=== PATIENT | male | born 1980 | race Caucasian/White ===

== ENCOUNTER 2018-10-19 15:39 | Emergency (ER) | payer SELFPAY ==
[2018-10-19] VITALS (38 sets, daily range): BP systolic 121–149; BP diastolic 67–107; PULSE 72–104; RESP 12–28; TEMP 37.1; O2SAT 94–100
--- NOTE | 2018-10-19 15:57 | DI.RAD_ITS ---
SYMPTOM/DIAGNOSIS: PALPITATIONS, SOB FRONTAL AND LATERAL CHEST: No priors. Heart size and pulmonary vasculature are within normal limits. Lungs are clear. They do appear to be hyperinflated with flattened diaphragms. This may represent underlying COPD. No effusions or pneumothoraces are identified. The bones are intact. IMPRESSION: Increased lung volumes which may be due to good inspiration versus COPD.
--- NOTE | 2018-10-19 15:59 | W.ED.GENAD ---
Discharge Plan Disposition Patient Disposition: HOME Condition: Stable Discharge Details Chief Complaint: Anxiety Clinical Impression: Panic attack, Heart palpitations Primary Care Provider: Rubén Bermudez ED Provider: Sherwin Osborne Home Meds and New Rx's Prescriptions: No Action No Known Home Meds RF: 0 Discharge Instructions Instructions: Palpitations (ED), Panic Attack (ED) Additional Instructions: Return immediately to the emergency department for any new or significant worsening of symptoms otherwise stay well-hydrated and follow-up with your primary care provider if symptoms persist Referrals: Rubén Bermudez MD [Primary Care Provider] - (As needed for reassessment) Discharge Data Discharge Date/Time-TO BE ENTERED AT DEPARTURE: 10/19/18 20:28 Medical Decision Making <Blake Oglesby NP - Last Filed: 10/21/18 09:15> History and exam consistent with panic attack. He is clinically dry and with history of collectomy we will evaluate electrolyte stability and initiate intravenous fluids. Will evaluate with chest x-ray and the ECG is benign with no acute ST abnormality and sinus tahycardic rhythm. Explained he would be here a few hours and I would turn care over to colleague for disposition. He is agreeable with POC. ECG Data Attestation: I personally reviewed and interpreted this ECG (s) as follows: Interpretation: Reviewed with Dr. Ortiz. No acute ST abnormality. Regular rhythm with abnormal rate of 105. <Sherwin Osborne NP - Last Filed: 10/19/18 20:38> Care of patient taken over by Blake Oglesby NP. Patient pending lab results for chief complaint of palpitations and what appears to be a panic attack. There was slight question of possible Trousseau sign by EMS but none noted in emergency department. Review of labs shows negative troponin, slight hypomagnesia, slightly low calcium but when adjusted for low albumin patient is within normal limits. Patient reassessed and again had no signs of low calcium with physical exam testing but continued to complain of palpitations and chest discomfort. Gave patient second liter of IV fluids and small amount of Ativan. Reassessed patient after liter of fluids patient is no longer tachycardic but continues to still complain of chest discomfort and intermittent palpitations which are not being observed on bedside monitor. Plan to check 3-hour troponin and repeat EKG along with give GI cocktail and Pepcid for possible heartburn/GERD symptoms related to heavy alcohol intake over the weekend. Review of 3-hour troponin and EKG shows no more tachycardia but otherwise no other EKG changes, -3-hour troponin. Patient reassessed and states resolution of symptoms and that he is ready to go home. Patient symptoms seem consistent with anxiety attack and possible secondary palpitations. Patient encouraged to return for any new or worsening symptoms otherwise to follow-up with primary care as needed. After discussion of diagnosis and plan of care patient has no further needs, questions, or concerns and states clear understanding to return to the emergency department for any worsening symptoms. <Zhao Ortiz MD - Last Filed: 10/19/18 20:01> ECG #1 at 1545 reviewed and interpreted by me: Sinus tachycardia 105 bpm, normal axis, short SC with SC interval of 116, RSR pattern, no stemi. Nondiagnostic. My interpretation was provided to nurse practitioner Mendel. ECG #2 reviewed and interpreted by me: Normal sinus rhythm 89 bpm, normal axis, RSR prime pattern noted, no STEMI. Nondiagnostic. My interpretation was provided to nurse practitioner [place]. I was physically present in the emergency department and available for consultation during some of the ED course. I was asked to interpret EKG. I was otherwise not involved in the care of this patient. HPI <Blake Oglesby NP - Last Filed: 10/21/18 09:15> General Mode of arrival: EMS. Date/Time Provider Initiated Documentation: 10/19/18 15:56. Limitations to Documentation: no limitations. Information obtained by: patient. History of Present Illness 38 year old M presents to the emergency department with the chief complaint of palpitations with SOB, HPI Narrative: 38 y/o male here via [facility] with concerns of palpitations, numbness and tingling to extremities, with SOB. Pt medical history significant with ulcerative colitis with extraction of his colon. No cardiac history or panic disorder. He enjoyed a few [place] parties and adult beverages per his usual. [place] fine when he woke this am. Around 1400 or two hrs [employer] he felt sudden onset of palpitations, SOB, and numbness and tingling to his extremities. Denies any cp. He did try to relax and calm down to see if that helped but symptoms were persistent so he call EMS. He did admit to smoking one joint today but otherwise no use of other recreational drugs. EMS reported positive Trousseaus sign with B/P cuff and hyperflexion of wrist and hand. Pt reports feeling better on arrival and is apologetic for coming in for what could be panic attack. Related Data Home Medications Medication Instructions Recorded Confirmed Unknown [No Known Home Meds] 10/19/18 10/19/18 Allergies Allergy/AdvReac Type Severity Reaction Status Date / Time No Known Allergies Allergy Unverified 10/19/18 16:02 Review of Systems <Blake Oglesby NP - Last Filed: 10/21/18 09:15> Eyes Reports system reviewed and no additional complaints, except as docu ENT Reports system reviewed and no additional complaints, except as docu Cardiovascular Reports palpitations and Reports dyspnea Respiratory Reports dyspnea Gastrointestinal Reports loose stools (chronic from colectomy) Genitourinary Reports system reviewed and no additional complaints, except as docu Musculoskeletal Reports back pain (chronic) Integumentary/Breasts Reports system reviewed and no additional complaints, except as docu Neurologic Reports paresthesias Psychiatric Reports anxiety Endocrine Reports palpitations Hematologic/Lymphatic Reports system reviewed and no additional complaints, except as docu Exam <Blake Oglesby NP - Last Filed: 10/21/18 09:15> Const General: cooperative, healthy appearing, comfortable and anxious Nutritional Appearance: thin Orientation: alert, awake and oriented x3 HENMT Head: atraumatic Ears: hearing grossly normal bilaterally and external ears normal General nose exam: external nose normal and nares normal Face and sinus: normal facial exam, sinuses nontender, face symmetric, no tenderness and dry mucous membranes Mouth: lip normal, tongue normal, moist mucous membranes abnormal (parched) and no trismus Eyes General: appearance normal, both eyes and all related structures Sclera: sclerae normal EOM: EOM intact bilaterally Neck Neck: normal visual inspection, full ROM and no lymphadenopathy Chest Chest: normal inspection of the chest and normal palpation of entire chest wall Resp Effort & Inspection: normal respiratory effort and able to speak in complete sentences Auscultation: clear to auscultation bilaterally Cardio Rate: tachycardic Rhythm: regular rhythm Heart Sounds: no murmurs GI Palpation: soft and nontender Back/Spine/Pelvis Cervical Spine: cervical ROM normal Thoracic/Lumbar Spine: thoracic and lumbar spine normal to inspection, thoraco-lumbar ROM normal and thoraco-lumbar ROM limited Skin General skin exam: no rashes or lesions noted Neuro General: alert, awake and oriented x3 Cranial Nerves: PERRL and no nystagmus Cognition: normal cognition Speech: speech normal Motor: strength 5/5 throughout, no fasciculations and no pronator drift noted Sensory Exam: no sensory deficits noted Coordination: [id number] test normal and [id number] test normal Extrem General: full ROM and normal capillary refill Psych Appearance: grossly normal Mental Status: mental status grossly normal Speech and Movement: speech and movement normal Mood: anxious mood Affect: normal affect Attitude: cooperative Thought Process: normal Thought Content: normal Insight: insight good Course <Blake Oglesby NP - Last Filed: 10/21/18 09:15> Vital Signs Respiratory Rate 19 10/19/18 15:36 Pulse 100 H 10/19/18 15:38 Pulse 101 H 10/19/18 15:40 Respiratory Rate 17 10/19/18 15:40 Blood Pressure 149/86 H 10/19/18 15:38 Blood Pressure Mean 95 10/19/18 15:38 Pulse Oximetry 100 10/19/18 15:40 Sign Out <Blake Oglesby NP - Last Filed: 10/21/18 09:15> Sign Out Data: Sign Out Comment: Discussed with Sherwin Johnson ENP. He agrees to take over care and dispo patient. Last updated by Blake Oglesby NP at 10/19/18 16:21
[2018-10-19] MEDS: Normal Saline 1,000 ML 1000 ML IV ×2 (16:00→17:25)
[2018-10-19 16:12] LABS: Abs Immature Grans 0.03 k/cumm (0.0-0.09); Absolute Basophil Count 0.03 k/cumm (0.0-0.2); Absolute Lymphocyte Count 1.55 k/cumm (1.2-3.4); Absolute Monocyte Count 0.85 k/cumm (0.11-0.7); Basophils % 0.2; Eosinophils % 0.4; HGB 13.4 g/dL (13.5-17.5); Immature Grans % 0.2; Lymphocytes % 11.6; Mean Corp. HGB Concentration 34.4 g/dL (32.0-36.0); Mean Corpuscular Hemoglobin 30.6 pg (27.0-33.0); Mean Platelet Volume 8.8 fL (8.0-11.0); Monocytes % 6.4; Neutrophils % 81.2; Platelet Count 292 x1000/uL (130-400); RBC 4.38 m/cumm (4.50-6.00); RBC Distribution Width 12.6 % (11.8-14.1); White Blood Cell Count 13.35 k/cumm (4.4-10.8)
--- NOTE | 2018-10-19 16:20 | ED.GENADUL_ITS ---
Discharge Plan Disposition Patient Disposition: HOME Condition: Stable Discharge Details Chief Complaint: Anxiety Clinical Impression: Panic attack, Heart palpitations Primary Care Provider: Rubén Bermudez ED Provider: Sherwin Osborne Home Meds and New Rx's Prescriptions: No Action No Known Home Meds RF: 0 Discharge Instructions Instructions: Palpitations (ED), Panic Attack (ED) Additional Instructions: Return immediately to the emergency department for any new or significant worsening of symptoms otherwise stay well-hydrated and follow-up with your primary care provider if symptoms persist Referrals: Rubén Bermudez MD [Primary Care Provider] - (As needed for reassessment) Discharge Data Discharge Date/Time-TO BE ENTERED AT DEPARTURE: 10/19/18 20:28 Medical Decision Making <Blake Oglesby NP - Last Filed: 10/21/18 09:15> History and exam consistent with panic attack. He is clinically dry and with history of collectomy we will evaluate electrolyte stability and initiate intravenous fluids. Will evaluate with chest x-ray and the ECG is benign with no acute ST abnormality and sinus tahycardic rhythm. Explained he would be here a few hours and I would turn care over to colleague for disposition. He is agreeable with POC. ECG Data Attestation: I personally reviewed and interpreted this ECG (s) as follows: Interpretation: Reviewed with Dr. Ortiz. No acute ST abnormality. Regular rhythm with abnormal rate of 105. <Sherwin Osborne NP - Last Filed: 10/19/18 20:38> Care of patient taken over by Blake Oglesby NP. Patient pending lab results for chief complaint of palpitations and what appears to be a panic attack. There was slight question of possible Trousseau sign by EMS but none noted in emergency department. Review of labs shows negative troponin, slight hypomagnesia, slightly low calcium but when adjusted for low albumin patient is within normal limits. Patient reassessed and again had no signs of low calcium with physical exam testing but continued to complain of palpitations and chest discomfort. Gave patient second liter of IV fluids and small amount of Ativan. Reassessed patient after liter of fluids patient is no longer tachycardic but continues to still complain of chest discomfort and intermittent palpitations which are not being observed on bedside monitor. Plan to check 3-hour troponin and repeat EKG along with give GI cocktail and Pepcid for possible heartburn/GERD symptoms related to heavy alcohol intake over the weekend. Review of 3-hour troponin and EKG shows no more tachycardia but otherwise no other EKG changes, -3-hour troponin. Patient reassessed and states resolution of symptoms and that he is ready to go home. Patient symptoms seem consistent with anxiety attack and possible secondary palpitations. Patient encouraged to return for any new or worsening symptoms otherwise to follow-up with primary care as needed. After discussion of diagnosis and plan of care patient has no further needs, questions, or concerns and states clear understanding to return to the emergency department for any worsening symptoms. <Zhao Ortiz MD - Last Filed: 10/19/18 20:01> ECG #1 at 1545 reviewed and interpreted by me: Sinus tachycardia 105 bpm, normal axis, short SC with SC interval of 116, RSR pattern, no stemi. Nondiagnostic. My interpretation was provided to nurse practitioner Mendel. ECG #2 reviewed and interpreted by me: Normal sinus rhythm 89 bpm, normal axis, RSR prime pattern noted, no STEMI. Nondiagnostic. My interpretation was provided to nurse practitioner [place]. I was physically present in the emergency department and available for consultation during some of the ED course. I was asked to interpret EKG. I was otherwise not involved in the care of this patient. HPI <Blake Oglesby NP - Last Filed: 10/21/18 09:15> General Mode of arrival: EMS . Date/Time Provider Initiated Documentation: 10/19/18 15:56 . Limitations to Documentation: no limitations . Information obtained by: patient . History of Present Illness 38 year old M presents to the emergency department with the chief complaint of palpitations with SOB, HPI Narrative: 38 y/o male here via [facility] with concerns of palpitations, numbness and tingling to extremities, with SOB. Pt medical history significant with ulcerative colitis with extraction of his colon. No cardiac history or panic disorder. He enjoyed a few [place] parties and adult beverages per his usual. [place] fine when he woke this am. Around 1400 or two hrs [employer] he felt sudden onset of palpitations, SOB, and numbness and tingling to his extremities. Denies any cp. He did try to relax and calm down to see if that helped but symptoms were persistent so he call EMS. He did admit to smoking one joint today but otherwise no use of other recreational drugs. EMS reported positive Trousseaus sign with B/P cuff and hyperflexion of wrist and hand. Pt reports feeling better on arrival and is apologetic for coming in for what could be panic attack. Related Data Home Medications Medication Instructions Recorded Confirmed Unknown [No Known Home Meds] 10/19/18 10/19/18 Allergies Allergy/AdvReac Type Severity Reaction Status Date / Time No Known Allergies Allergy Unverified 10/19/18 16:02 Review of Systems <Blake Oglesby NP - Last Filed: 10/21/18 09:15> Eyes Reports system reviewed and no additional complaints, except as docu ENT Reports system reviewed and no additional complaints, except as docu Cardiovascular Reports palpitations and Reports dyspnea Respiratory Reports dyspnea Gastrointestinal Reports loose stools (chronic from colectomy) Genitourinary Reports system reviewed and no additional complaints, except as docu Musculoskeletal Reports back pain (chronic) Integumentary/Breasts Reports system reviewed and no additional complaints, except as docu Neurologic Reports paresthesias Psychiatric Reports anxiety Endocrine Reports palpitations Hematologic/Lymphatic Reports system reviewed and no additional complaints, except as docu Exam <Blake Oglesby NP - Last Filed: 10/21/18 09:15> Const General: cooperative, healthy appearing, comfortable and anxious Nutritional Appearance: thin Orientation: alert, awake and oriented x3 HENMT Head: atraumatic Ears: hearing grossly normal bilaterally and external ears normal General nose exam: external nose normal and nares normal Face and sinus: normal facial exam, sinuses nontender, face symmetric, no tenderness and dry mucous membranes Mouth: lip normal, tongue normal, moist mucous membranes abnormal (parched) and no trismus Eyes General: appearance normal, both eyes and all related structures Sclera: sclerae normal EOM: EOM intact bilaterally Neck Neck: normal visual inspection, full ROM and no lymphadenopathy Chest Chest: normal inspection of the chest and normal palpation of entire chest wall Resp Effort & Inspection: normal respiratory effort and able to speak in complete sentences Auscultation: clear to auscultation bilaterally Cardio Rate: tachycardic Rhythm: regular rhythm Heart Sounds: no murmurs GI Palpation: soft and nontender Back/Spine/Pelvis Cervical Spine: cervical ROM normal Thoracic/Lumbar Spine: thoracic and lumbar spine normal to inspection, thoraco- lumbar ROM normal and thoraco-lumbar ROM limited Skin General skin exam: no rashes or lesions noted Neuro General: alert, awake and oriented x3 Cranial Nerves: PERRL and no nystagmus Cognition: normal cognition Speech: speech normal Motor: strength 5/5 throughout, no fasciculations and no pronator drift noted Sensory Exam: no sensory deficits noted Coordination: [id number] test normal and [id number] test normal Extrem General: full ROM and normal capillary refill Psych Appearance: grossly normal Mental Status: mental status grossly normal Speech and Movement: speech and movement normal Mood: anxious mood Affect: normal affect Attitude: cooperative Thought Process: normal Thought Content: normal Insight: insight good Course <Blake Oglesby NP - Last Filed: 10/21/18 09:15> Vital Signs Respiratory Rate 19 10/19/18 15:36 Pulse 100 H 10/19/18 15:38 Pulse 101 H 10/19/18 15:40 Respiratory Rate 17 10/19/18 15:40 Blood Pressure 149/86 H 10/19/18 15:38 Blood Pressure Mean 95 10/19/18 15:38 Pulse Oximetry 100 10/19/18 15:40 Sign Out <Blake Oglesby NP - Last Filed: 10/21/18 09:15> Sign Out Data: Sign Out Comment: Discussed with Sherwin Johnson ENP. He agrees to take over care and dispo patient. Last updated by Blake Oglesby NP at 10/19/18 16:21
[2018-10-19 16:27] LABS: Absolute Eosinophil Count 0.05 k/cumm (0.0-0.7); Absolute Neutrophil Count 10.84 k/cumm (1.2-6.7)
--- NOTE | 2018-10-19 16:33 | DI.VRAD_ITS ---
EXAM: XR Chest, 2 Views EXAM DATE/TIME: 10/19/2018 3:58 PM CLINICAL HISTORY: 38 years old, male; Signs and symptoms; Shortness of breath and other: Palpitations TECHNIQUE: XR of the chest, 2 views. COMPARISON: No relevant prior studies available. FINDINGS: The lung volumes are increased which may be secondary to a good inspiratory effort as well as obstructive airways disease. The lungs are clear. No pleural effusion or pneumothorax is identified. The cardiomediastinal silhouette and vasculature are within normal limits. IMPRESSION: 1. Increased lung volumes which may be secondary to a good inspiratory effort as well as obstructive airways disease. 2. Clear lungs. Dictated and Authenticated by: Braxton Garduno MD. Ordering:MAIRA Lozano MD
[2018-10-19 16:44] LABS: ALT 39 U/L (12-78); AST 25 U/L (15-37); Albumin 3.3 g/dL (3.4-5.0); Alkaline Phosphatase 78 U/L (46-116); Anion Gap 13.4 mmol/L (3-11); BUN 19 mg/dL (7-18); Bilirubin, Total 0.2 mg/dL (0.2-1.0); CO2 22.6 mmol/L (21.0-32.0); CREATININE 1.18 mg/dL (0.70-1.30); Calcium 8.2 mg/dL (8.5-10.1); Chloride 101 mmol/L (98-107); Glucose 124 mg/dL (70-100); Magnesium 1.4 mg/dL (1.8-2.4); Potassium 3.6 mmol/L (3.5-5.1); Sodium 137 mmol/L (136-145); TSH (W/Ref FT4) 0.38 uIU/mL (0.358-3.74); Total Protein 6.8 g/dL (6.4-8.2); Troponin I < 0.02 ng/mL (0.00-0.06)
[2018-10-19 17:07] LABS: Tricyclic Antidepressants Negative (Negative)
[2018-10-19] MEDS: Magnesium Oxide 400 MG TAB 800 MG PO (17:22)
[2018-10-19 17:30] LABS: *AMPHETAMINES SCREEN URINE Negative (Negative); *BARBITURATES SCREEN URINE Negative (Negative); *BENZODIAZEPINES SCREEN URINE Negative (Negative); Cannabinoids THC POSITIVE (Negative); Cocaine Screen,Urine Negative (Negative); METHADONE URINE SCREEN Negative (Negative); OPIATES URINE SCREEN Negative (Negative)
[2018-10-19] MEDS: Normal Saline Flush 10 ML SYR IVP (18:27)
[2018-10-19] MEDS: LORazepam 2 MG/ML VIAL 0.5 MG IVP (18:27)
[2018-10-19] MEDS: Famotidine 20 MG TAB PO (20:02)
[2018-10-19 20:13] LABS: Troponin I < 0.02 ng/mL (0.00-0.06)
== END 2018-10-19 20:28 | disposition home or self-care (01) ==
PROVIDERS: Nurse Practitioner Family; Emergency Provider Nurse Practitioner Family; PCP Internal Medicine
DX: F41.0 Panic disorder [episodic paroxysmal anxiety] (principal); R00.2 Palpitations
CPT/HCPCS: 36415; 80053; 80307; 93005; 96361; 96374; 99285; 71046; 83735; 84443; 84484; 85025; 93010; J2060